=== PATIENT | female | born 2005 | race Caucasian/White ===

== ENCOUNTER 2024-10-01 13:23 | Inpatient (IN) | payer BC, OTHER ==
[2024-10-01 14:43] VITALS: RESP 18; BMI 37.4
[2024-10-01 15:32] LABS: ABSOLUTE IMMATURE GRANULOCYTES 0.08 x10^3/uL (0.0-0.031); BASOPHILS # 0.02 x10^3/uL (0.01-0.08); EOSINOPHIL % 0.2 % (0.7-5.8); EOSINOPHILS # 0.03 x10^3/uL (0.04-0.36); MCHC 33.0 g/dl (32.2-35.5); MEAN CELL VOLUME 88.4 fl (79.4-94.8); MEAN PLT VOLUME 11.9 fl (9.4-12.3); MONOCYTE # 1.08 x10^3/uL (0.24-0.86); MONOCYTE % 7.4 % (4.7-12.5); RDW 14.4 % (12.0-16.2)
[2024-10-01 15:44] LABS: INR 1.01 (0.83-1.09); PROTHROMBIN TIME (PATIENT) 11.0 SEC (9.7-13.0)
[2024-10-01 15:47] LABS: ACTIVATED PTT 26.0 SECONDS (25.2-36.5)
[2024-10-01 18:15] LABS: GLUCOSE,RANDOM 102.0 mg/dL (74-106)
[2024-10-01 18:17] LABS: CO2 19.0 mmol/L (21-32)
[2024-10-01] MEDS: LACTATED RINGERS SOLUTION 1,000 ML/1,000 ML INFUS.BAG IV SCH (18:20)
[2024-10-01 18:21] LABS: CREATININE 0.73 mg/dL (0.55-1.3)
[2024-10-01] MEDS ORDERED: OXYTOCIN 20 UNITS in 0.9% NS 20 UNIT/1,000 ML INFUS.BAG IV ONE (20:17)
[2024-10-01] MEDS ORDERED: LIDOCAINE HCL 1% PRESERVATIVE FREE - 30ML VIAL ONE (20:17)
[2024-10-01] MEDS: OXYTOCIN 20 UNITS in 0.9% NS 20 UNIT/1,000 ML INFUS.BAG IV SCH (20:35)
[2024-10-01] MEDS ORDERED: BISACODYL 10 MG SUPP.RECT RC PRN (20:46)
[2024-10-01] MEDS ORDERED: ACETAMINOPHEN 325 MG TABLET (FP) PO PRN (20:46)
[2024-10-01] MEDS ORDERED: METHYLERGONOVINE MALEATE 0.2 MG/1 ML AMP IM PRN (20:46)
[2024-10-01] MEDS ORDERED: BENZOCAINE 28 GM HEMORRHOIDAL OINTMENT TP PRN (20:46)
[2024-10-02 06:55] LABS: ABSOLUTE IMMATURE GRANULOCYTES 0.08 x10^3/uL (0.0-0.031); BASOPHILS # 0.03 x10^3/uL (0.01-0.08); EOSINOPHIL % 0.3 % (0.7-5.8); EOSINOPHILS # 0.05 x10^3/uL (0.04-0.36); MCHC 32.9 g/dl (32.2-35.5); MEAN CELL VOLUME 87.3 fl (79.4-94.8); MEAN PLT VOLUME 11.9 fl (9.4-12.3); MONOCYTE # 1.35 x10^3/uL (0.24-0.86); MONOCYTE % 8.2 % (4.7-12.5); RDW 14.4 % (12.0-16.2)
[2024-10-02] MEDS: PRENATAL VITAMINS W/ FOLIC ACID TABLET (FP) PO SCH (10:13)
[2024-10-02] MEDS ORDERED: SENNOSIDES/DOCUSATE COMBO (SENNA PLUS) TABLET (UD) PO PRN (22:00)
[2024-10-02 22:57] VITALS: PULSE 79; TEMP 98.3
[2024-10-03] MEDS: IBUPROFEN 600 MG TABLET (FP) PO PRN (09:44)
[2024-10-03 11:16] VITALS: BP 111/60
[2024-10-03] MEDS: WITCH HAZEL 50% (TUCKS) 40 PAD/JAR PAD TP PRN (17:25)
[2024-10-03] MEDS: BENZOCAINE 20% 57 GM BOTTLE TP PRN (17:25)
== END 2024-10-03 18:20 | disposition home or self-care (01) | DRG 807 ==
LOC: JLDR 13:23 → J3W 22:40
PROVIDERS: ADMIT Obstetrics & Gynecology; ATTEND Obstetrics & Gynecology
PROC: 10E0XZZ Delivery of Products of Conception, External Approach (ICD-10-PCS; principal; 2024-10-01)
PROC: 0HQ9XZZ Repair Perineum Skin, External Approach (ICD-10-PCS; 2024-10-01)
DX: O70.0 First degree perineal laceration during delivery (principal); Z37.0 Single live birth; Z3A.39 39 weeks gestation of pregnancy
CPT/HCPCS: 36415; 59409; 80048; 85025; 85610; 85730; 86780; 86850; 86900; 86901